=== PATIENT | male | born 1955 ===

== ENCOUNTER 2020-01-13 16:04 | Day surgery (SDC) | payer BC ==
[~2020-01-13 16:04] MED LIST: IOHEXOL 300 MG/ML 100ML IV ONE; WATER FOR IRRIG STERILE 2000 ML IR ONE
[2020-01-13] MEDS ORDERED: fentaNYL 100 MCG/2 ML INJ IV PRN (16:24)
[2020-01-13] MEDS ORDERED: ONDANSETRON 4 MG/2 ML INJ IV PRN (16:24)
--- NOTE | 2020-01-13 16:25 | Anesthesia Day of Surgery ---
Anesthesia Day of Surgery - Day of Surgery Patient Examined: Yes Patient H&P Reviewed: Yes Patient is NPO: Yes ([id number])
[2020-01-13] MEDS ORDERED: ceFAZolin/STERILE WATER 2 GM/20 ML SYRINGE IV NR (16:29)
--- NOTE | 2020-01-13 16:33 | Anesthesia Consultation ---
Anesthesia Consult and Med Hx Date of service: 01/13/20 - Airway Anesthetic Teeth Evaluation: Good, Crowns ROM Head & Neck: Adequate Mental/Hyoid Distance: Adequate Mallampati Class: Class II Intubation Access Assessment: Good - Pre-Operative Health Status ASA Pre-Surgery Classification: ASA1, Emergency Proposed Anesthetic Plan: General - Pulmonary Hx Respiratory Symptoms: No (Very active) - Cardiovascular System Hx Coronary Artery Disease: No (ETT last year ok per patient) - Endocrine Hx Renal Disease: Yes (Stone) - Other Systems Hx Alcohol Use: Yes
[2020-01-13] MEDS ORDERED: LACTATED RINGERS 1,000 ML IV SCH (17:00)
[2020-01-13] MEDS ORDERED: LIDOCAINE MPF (2%) 20 MG/1 ML VIAL 5 ML ONE (17:06)
[2020-01-13] MEDS ORDERED: MIDAZOLAM 2 MG/2 ML INJ ONE (17:06)
[2020-01-13] MEDS ORDERED: propofoL 200 MG/20 ML VIAL IV ONE (17:07)
[2020-01-13] MEDS ORDERED: fentaNYL 100 MCG/2 ML INJ ONE (17:07)
--- NOTE | 2020-01-13 18:20 | Short Stay Summary ---
Short Stay Documentation Date of service: 01/13/20 - History H&P: obtained from office - Allergies and Medications Current Medications: Allergies amoxicillin Adverse Reaction (Verified 01/13/20 16:55) Unknown PT STATES HEART STARTS RACING Home Medications Medication Instructions Recorded Confirmed Last Taken Type Ciprofloxacin HCl [Ciprofloxacin 500 mg PO BID 01/13/20 01/13/20 01/13/20 07:00 History TAB] Loratadine [Allergy Relief] 10 mg PO DAILY 01/13/20 01/13/20 01/12/20 History Ondansetron HCl [Zofran] 4 mg PO Q8HR 01/13/20 01/13/20 01/13/20 07:00 History Tamsulosin 0.4 mg PO QHS 01/13/20 01/13/20 01/12/20 History oxyCODONE /ACETAMINOPHEN [Percocet 5 - 325 mg PO Q6HR 01/13/20 01/13/20 01/13/20 07:00 History 5/325 mg] Active Medications Fentanyl (Sublimaze) 50 mcg IV Q5MIN PRN PRN Reason: Pain , Severe (7-10) Lactated Ringer's (Lactated Ringers) 1,000 mls @ 125 mls/hr IV DIRECT POWER Last Admin: 01/13/20 17:01 Dose: 125 mls/hr Documented by: Ondansetron HCl (Zofran) 4 mg IV ONCE PRN PRN Reason: Nausea And Vomiting - Brief post op/procedure progress note Date of procedure: 01/13/20 Pre-op diagnosis: left ureteral stone Post-op diagnosis: same Procedure: cysto, rpg, ureteroscopy, basket stone, stent with external string Anesthesia: [place] Surgeon: FLO CALLAWAY Condition: stable - Hospital course Hospital course: cipro,ultram, norco, post op info on chart - Disposition Condition at discharge: Stable Disposition: DC-01 TO HOME OR SELFCARE Short Stay Discharge Plan Follow up with: FLO CALLAWAY MD [Primary Care Provider] - 7 Days
[2020-01-13] MEDS ORDERED: KETOROLAC 30 MG/1 ML INJ ONE (18:30)
[2020-01-13] MEDS ORDERED: dexAMETHasone 20 MG/5 ML VIAL ONE (18:30)
[2020-01-13] MEDS ORDERED: ONDANSETRON 4 MG/2 ML INJ ONE (18:30)
[2020-01-13 19:17] VITALS: BP 130/66
--- NOTE | 2020-01-13 19:26 | Post Anesthesia Evaluation ---
- Post Anesthesia Evaluation Patient Participated: Yes Airway Patent: Yes Stable Respiratory Function: Yes Nausea/Vomiting: No Temp > 96.8F: Yes Pain Manageable: Yes Adequeate Hydration: Yes Anesthesia Complications: No Block Receding Appropriately: Not Applicable Patient on Ventilator: No
--- NOTE | 2020-01-13 19:26 | Operative Report ---
PREOPERATIVE DIAGNOSIS: Left distal ureteral stone, impacted. POSTOPERATIVE DIAGNOSIS: Left distal ureteral stone, impacted. PROCEDURES: Cystoscopy, bilateral retrograde pyelograms, left ureteroscopy, basket stone extraction, double-J stent placement (6-[place] 24 cm with an external string). SURGEON: Fahad Bello MD ANESTHESIA: General. ESTIMATED BLOOD LOSS: Minimal. FLUIDS: Crystalloid. COMPLICATIONS: No complications. INDICATIONS: This patient is a 64-year-old gentleman, called our emergency line for stone. He had a CT yesterday which revealed a distal stone. He had nausea and vomiting that persisted. He was seen in the office. Discussed options. He wanted to proceed with surgical intervention. DESCRIPTION OF PROCEDURE: The patient was taken to the operative suite, placed in a supine position. After adequate general anesthesia, he was placed in a dorsal lithotomy position, prepped and draped in a sterile fashion. Pancystourethroscopy was performed with 22-[place] Storz cystoscope. No urethral abnormalities. His prostate did display some mild trilobar obstruction. Bladder, no tumors were noted. Stone could be appreciated at the ureteral orifice on the left side. Right retrograde pyelogram was obtained with an 8-[place] Panola catheter and 8 mL of contrast. No filling defects or obstruction. Gentle left retrograde did reveal some dilatation of the distal ureter. Two 0.035 Glidewires were placed. Rigid ureteroscopy was performed. The stone could be appreciated. It was engaged with a 3-[place] Donna basket and removed. A 6-[place] 24 cm double-J stent with an external string was left indwelling. Bladder was drained. Rectal exam was benign. He was extubated and taken to recovery room. He will go home on Cipro, Ultram, and [employer]. JOB# [id number] [facility]
--- NOTE | 2020-01-13 19:39 | Fluoroscopy Report ---
INTRAOPERATIVE FLUOROSCOPY: RETROGRADE URETEROGRAM INDICATION / CLINICAL INFORMATION: LT URETERAL STONE. TECHNIQUE: Intraoperative spot images were obtained during the procedure. FINDINGS: Images show injection of contrast into the right ureter. No filling defects are seen. Subsequent imag es show contrast in the distal left ureter with subsequent placement of a wire and double-J stent on the left. Fluoroscopy Time: 30 seconds . Fluoroscopy Images: 8. Signer Name: Yanick Mccarthy MD Signed: 01/13/2020 7:35 PM Workstation Name: [id number]
== END 2020-01-13 19:46 | disposition home or self-care (01) ==
LOC: OR 16:04
PROVIDERS: ATTEND Urology
DX: N20.1 Calculus of ureter (principal); Z88.6 Allergy status to analgesic agent; Z79.899 Other long term (current) drug therapy; Z98.890 Other specified postprocedural states; Z72.89 Other problems related to lifestyle
CPT/HCPCS: 52332; 52352; 74420; A4217; C1726; C1769; C2617; J1100; J1885; J1956; J2250; J2405; J2704; J3010; J7120; Q9967